=== PATIENT | male | born 1990 | race African-American/Black ===

== ENCOUNTER 2024-07-10 01:50 | Emergency (ER) | payer OTHER ==
[~2024-07-10] VITALS: Ht 193 cm; Wt 129.8 kg
[2024-07-10] MEDS: KETOROLAC TROMETH 60MG/2ML VIAL IM ONE (03:02)
[2024-07-10] MEDS ORDERED: IBUP-1456 PO (05:39)
--- NOTE | 2024-07-10 05:39 | ED.PDOC ---
Back pain HPI HPI Comments C/O LEFT ARM PAIN X 0100 TODAY. STATES A 100LB WEIGHT WAS GOING TO FALL AND HE REACHED AND CAUGHT IT. HEARD A "POP". +ROM AND +CSM Chief Complaint: Upper Extremity Time Seen by MD: 02:00 Reviewed Notes: Nurses Notes, Medications, Allergies Allergies: Coded Allergies: NO KNOWN ALLERGIES (Unverified , 07/10/24) Information Source: Patient Mode of Arrival: Ambulatory Past Medical History PAST MEDICAL HISTORY: Denies Surgical History: Denies all surgeries Family History Family History: Reviewed,noncontributory to illness Social History Smoker: Non-Smoker Alcohol: Denies ETOH Use Drugs: Denies Drug Use Constitutional: denies: chills, diaphoresis, fatigue, fever, malaise, sweats, weakness, others EENTM: denies: blurred vision, double vision, ear bleeding, ear discharge, ear drainage, ear pain, ear ringing, eye pain, eye redness, hearing loss, mouth pain, mouth swelling, nasal discharge, nose bleeding, nose congestion, nose pain, photophobia, tearing, throat pain, throat swelling, voice changes, others Respiratory: denies: cough, hemoptysis, orthopnea, SOB at rest, shortness of breath, SOB with excertion, stridor, wheezing, others Cardiovascular: denies: chest pain, dizzy spells, diaphoresis, Dyspnea on exertion, edema, irregular heart beat, left arm pain, lightheadedness, palpitations, PND, syncope, others Gastrointestinal: denies: abdomen distended, abdominal pain, blood streaked bowels, constipated, diarrhea, dysphagia, difficulty swallowing, hematemesis, melena, nausea, poor appetite, poor fluid intake, rectal bleeding, rectal pain, vomiting, others Genitourinary: denies: burning, dysuria, flank pain, frequency, hematuria, incontinence, penile discharge, penile sore, pain, testicle pain, testicle swelling, urgency, others Neurological: denies: dizziness, fainting, headache, left sided numbness, left sided weakness, numbness, paresthesia, pre-existing deficit, right sided numbness, right sided weakness, seizure, speech problems, tingling, tremors, weakness, others Musculoskeletal: reports: others (left lower arm pain ); denies: back pain, gout, joint pain, joint swelling, muscle pain, muscle stiffness, neck pain Integumetry: denies: bruises, change in color, change in hair/nails, dryness, laceration, lesions, lumps, rash, wounds, others Allergic/Immunocompromised: denies: Difficulty Healing, Frequent Infections, Hives, Itching, others Hematologic/Lymphatic: denies: anemia, blood clots, easy bleeding, easy br uising, swollen glands, others Endocrine: denies: excessive hunger, excessive sweating, excessive thirst, excessive urination, flushing, intolerance to cold, intolerance to heat, unexplained weight gain, unexplained weight loss, others Psychiatric: denies: anxiety, bipolar disorder, depression, hopeless, panic disorder, schizophrenia, sleepless, suicidal, others Physical Exam General Appearance: No Apparent Distress, Normal HEENT: Pharynx Normal Neck: Full Range of Motion, Non-Tender Respiratory: Lungs Clear, No Respiratory Distress, Normal Breath Sounds Cardiovascular: No Murmur, Normal Peripheral Pulses, Regular Rate/Rhythm Breast Exam: Deferred Gastrointestinal: Non Tender, Soft Genitalia: Deferred Pelvic: Deferred Rectal: Deferred Extremities: Normal capillary refill, Normal inspection, Normal range of motion Musculoskeletal : Apperance: Normal Neurologic: Alert, police pilot II-XII nml as Tested, No Motor Deficits, Normal Affect, Normal Mood, No Sensory Deficits Cerebellar Function: Normal Reflexes: Normal Skin: Dry, Normal Color, Warm Lymphatic: No Adenopathy Was a procedure done? Was a procedure done?: No Back Pain Differential Dx Differential Diagnosis: Fracture, Musculoskeletal Pain X-Ray, Labs, Meds, VS Vital Signs Date Time Temp Pulse Resp B/P (MAP) Pulse Ox O2 Delivery O2 Flow Rate FiO2 07/10/24 02:08 97.8 77 18 126/69 (88) 100 97.8 07/10/24 02:08 Room Air 07/10/24 02:08 97.8 77 18 126/69 (88) 100 Current Medications Medications (Trade) Dose Ordered Sig/Gertrude Route Start Time Stop Time Status Last Admin Ketorolac Tromethamine (Toradol Injection) 60 mg ONCE ONCE IM 07/10/24 03:00 07/10/24 03:01 DC 07/10/24 03:02 X-Ray, Labs, Meds, VS Comment Patient given Toradol 60 mg IM reports improvement in pain and function requesting discharge at this time. Reevaluation 1ST: Improved Patient Education/Counseling: Diagnosis, Treatment, Prognosis, Need For Follow Up Family Education/Counseling: No Family Present Departure 1 Departure Impression: Primary Impression: Contusion of forearm, left Qualified Codes: S50.12XA - Contusion of left forearm, initial encounter Disposition: HOME / SELF CARE / HOMELESS Condition: Stable e-Prescriptions Ibuprofen (Ibuprofen) 800 Mg Tab 1 TAB PO TID PRN for 5 Days, #15 TAB Prov: IMER MILES 07/10/24 Discharged With: Self Critical Care Note Critical Care Time?: No Stability Stability form required: IMER Treadwell Jul 10, 2024 05:39
[2024-07-10 06:12] VITALS: BP 131/76; PULSE 69; RESP 18; TEMP 97.8; O2SAT 97
--- NOTE | 2024-07-14 17:11 | DVH ---
Examination: LELB3 Clinical Indication: injury/pain Comparison: None. Technique: Multiple radiographs of left elbow were performed. Findings: There is no evidence of fracture or dislocation. The radial head is intact. The bone density is normal. The soft tissues are unremarkable. Impression: Normal study. Electronically Signed 07/10/2024 04:17 Zeenat MOODY
== END 2024-07-10 06:29 | disposition home or self-care (01) ==
LOC: ER 01:50
DX: S50.12XA Contusion of left forearm, initial encounter (principal); X50.1XXA Overexertion from prolonged static or awkward postures, initial encounter; Y93.89 Activity, other specified; Y92.89 Other specified places as the place of occurrence of the external cause; Y99.8 Other external cause status
CPT/HCPCS: 73080; 96372; 99283; J1885